=== PATIENT | female | born 1930 ===

== ENCOUNTER 2018-09-29 04:44 | Inpatient (IN) | payer OTHER ==
--- NOTE | ~2018-09-29 | PR ---
[place], [place] PROGRESS NOTE NAME: KAREN MEEK UNIT #: [id number] ROOM: 310 DOCTOR: CRISS BLANKENSHIP MD BIRTHDATE: [birth year] DOS: 10/01/2018 INTERVAL NOTE CHIEF COMPLAINT: "Oh thank you for helping me." SUMMARY OF THE VISIT: The patient was interviewed as she was sitting trying to open a milk carton. I did remove the milk carton from her hand, opened it for her and placed it back in her hand and she thanked me profusely. She was bright and pleasant with me; however, nurses report she continues to repeatedly exit seek. She is very intrusive and impulsive. She oftentimes attempts to help other patients out or will take other patients belongings. She has also had periods of yelling out and being very inappropriate. Outwardly, she is tolerating the current medication regimen well and I see no sedation, somnolence, extrapyramidal symptoms or tardive dyskinesia. MENTAL STATUS: She is alert and oriented to person, doubtful to place, certainly not time. Mood does still seem to be labile. Affect at times inappropriate. Her responses are short, simple, at times inappropriate to the questions that are being asked of her. She does process information slowly and short-term memory continues to be problematic. PLAN: I will go ahead and increase Namenda from 5 mg a day to 5 mg twice a day while simultaneously increasing Exelon patch from 4.6 to 9.5 mg daily. Given the fact that there is a great deal of delusions present, I will increase her Risperdal from 0.5 mg twice daily to 1 mg twice daily, we will simultaneously discontinuing the Vistaril as to lessen the potential for somnolence. We will ultimately want to switch her over to Risperdal Consta or Invega Sustenna. We will monitor and support, engage in individual and richardson milieu activity. CIRSS BLANKENSHIP MD CM:PNTRANS [id number] CRISS BLANKENSHIP MD 10/01/18 0853 interface
--- NOTE | ~2018-09-29 | PR ---
[place], [place] PROGRESS NOTE NAME: KAREN MEEK UNIT #: [id number] ROOM: 310 DOCTOR: CRISS BLANKENSHIP MD BIRTHDATE: [birth year] DOS: 10/04/2018 INTERVAL NOTE CHIEF COMPLAINT: "Good morning where do I go?" SUMMARY OF THE VISIT: The patient was interviewed as she was sitting in front of her breakfast. She had about half of it eaten. She engaged readily in conversation with me. It was short and simple responses often times inappropriate. At times, no response. She rambled at times. She continues to exit seek per nursing and is very confused and requires a great deal of support and redirection. MENTAL STATUS: She is alert and oriented to person, doubtful place, not to time. Mood does seem to be more euthymic, but it is very difficult to redirect her. There is no lori or hypomania. There is no gross psychosis. Short-term memory is very problematic. PLAN: I will maintain her current dose of Exelon patch at 13.3, increase now Namenda to its maximum dose of 10 b.i.d. Monitor and maintain, support and redirect. Engage in individual and richardson milieu activity, discharging her to the least restrictive environment when psychiatrically stable. CRISS BLANKENSHIP MD CM:PNTRANS [id number] CRISS BLANKENSHIP MD 10/04/18 0850 interface
--- NOTE | ~2018-09-29 | PR ---
[place], [place] PROGRESS NOTE NAME: KAREN MEEK UNIT #: [id number] ROOM: 310 DOCTOR: CRSIS BLANKENSHIP MD BIRTHDATE: [birth year] DOS: 10/06/2018 CHIEF COMPLAINT: "Oh, I don't know." SUMMARY OF THE VISIT: The patient was interviewed as she was going into the court hearing for further length of stay. The patient was rather disjointed and fragmented and very perplexed by the entire process. The court did rule that the patient did require further stay here. The patient outwardly is alert and oriented to self, unclear place and certainly not time. Mood does seem to be trending towards euthymia. There is much less exit seeking and much less impulsivity. There is no hypomania or lori. There are no gross psychotic symptoms. She does process conversation exceptionally poorly and her short term memory is very poor as well. PLAN: I will renew her Ativan p.r.n. should she require intervention. She has already received a loading dose of the Invega Sustenna and is scheduled to receive a secondary loading dose on 10/09/2018. At this time, I will discontinue her oral Risperdal as to lessen the risk of extrapyramidal symptoms and tardive dyskinesia. We will continue to engage her in individual and richardson milieu activity, returning to the least restrictive environment when psychiatrically stable. CRISS BLANKENSHIP MD CM:PNTRANS [id number] CRISS BLANKENSHIP MD 10/07/18 0308 interface
--- NOTE | ~2018-09-29 | PR ---
[place], [place] PROGRESS NOTE NAME: KAREN MEEK UNIT #: [id number] ROOM: 310 DOCTOR: CRISS BLANKENSHIP MD BIRTHDATE: [birth year] DOS: 10/05/2018 CHIEF COMPLAINT: "Oh, I lived in the [facility] by myself." SUMMARY OF THE VISIT: The patient was interviewed as she was finishing her breakfast. She smiled and engaged readily in conversation. Her conversation for the most part was nonsensical to the questions being asked of her, but she was pleasant and did attempt to engage. There was no agitation or aggression. Also, there was no somnolence, sedation, extrapyramidal symptoms or tardive dyskinesia. MENTAL STATUS: She remains alert and oriented to self only. It is unclear if she realizes she is in the hospital and she is certainly not oriented to time. Mood does still seem to be somewhat labile, but she is redirectable. She does require a lot of support and redirection. There is no lori or hypomania. There are no gross psychotic symptoms. She does process information slowly and short term memory continues to be very problematic. PLAN: I will renew her p.r.n. Ativan should she require intervention. The patient is to get her initial loading dose of Invega Sustenna 156 mg IM today. I will reload her with Invega Sustenna 156 mg IM on 10/09/2018 and at that time, give her that same dose every month to decrease her mood lability and impulsivity. We will monitor for risk, benefits. We will engage in individual and richardson milieu activity with the ultimate plan to return to the least restrictive environment when psychiatrically stable. CRISS BLANKENSHIP MD CM:PNTRANS [phone] CRISS BLANKENSHIP MD 10/06/18 0325 interface
--- NOTE | ~2018-09-29 | CON ---
[place], [place] REPORT OF CONSULTATION NAME: KAREN MEEK UNIT #: [id number] ROOM: 310 DOCTOR: PHD MAINOR PATEHERINE BIRTHDATE: [birth year] DOS: 09/30/2018 HISTORY OF PRESENT ILLNESS: The patient is an 87-year-old female referred by Dr. Martinez for a competency evaluation. At the present time, the patient is on the [facility] at [facility]. She is and has 3 children. 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 She lives alone, although her daughter is now planning on moving in with her. The patient does not drink alcohol, smoke cigarettes or use illegal drugs. PAST MEDICAL HISTORY: Intermittent explosive disorder, hypothyroidism, dementia. MEDICATIONS: Vitamin D, Vistaril, Synthroid, Risperdal, Namenda, Exelon, Geodon, Ativan. The patient was awake, alert and oriented to person only. 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 She talked about her mother as if she were still living. The patient was not able to be redirected in conversation and was hyperverbal. She would not sit in a quiet room for the evaluation and instead walked up and down the hallway. She does not have a healthcare power of banking attorney and her family is interested in pursuing guardianship. The patient is currently not competent to make informed health care decisions at this time. In my opinion, she would benefit from establishing guardianship due to her significant cognitive deficits. DIAGNOSIS: Unspecified neurocognitive disorder. In my opinion, the patient is not competent to make informed health care decisions. Thank you very much for this consult. Corazon Pate, PhD CM:CONSTR:REPORT OF CONSULTATION 1710 10/01/18 0513 interface
--- NOTE | ~2018-09-29 | WRIGHTHP ---
[place], [place] PATIENT HISTORY AND PHYSICAL EXAM NAME: KAREN MEEK UNIT #: [id number] ROOM: 310 DOCTOR: CRISS BLANKENSHIP MD BIRTHDATE: [birth year] DOS: 09/30/2018 INITIAL PSYCHIATRIC EVALUATION CHIEF COMPLAINT: "I am here because of the food you know." HISTORY OF PRESENT ILLNESS: This is an 87-year-old white female who was sent here on an involuntary basis from [facility]. The patient was brought to [place] by the police. The patient had accompanied her daughter earlier in the day to the bank to mayfield the check. After they mayfield the check, the patient became very irate, irritable and paranoid, accusing the daughter of stealing all of her money. Her behavior escalated to the point that she was putting her daughter at risk for harm. The daughter ultimately called the police and police did bring her to [place] to be evaluated. The patient apparently lives alone with family checking on her several times a week. The patient has not been eating or drinking well. She has not been sleeping well. She has not been attending to her ADLs. The patient is grossly confused and delusional and was admitted now to rule out any organic factors, to stabilize on medication and to determine the least restrictive environment to which she could return. PAST MEDICAL HISTORY: Remarkable for intermittent explosive disorder, hypothyroidism and dementia. The patient does not smoke cigarettes. She does not drink alcohol nor does she use illicit drugs. STRENGTHS: Ambulatory, good verbal skills. WEAKNESSES: Cognitive decline, poor coping skills. MENTAL STATUS: She is alert and oriented to person, possibly place, although it is unlikely certainly not time. Mood does seem to be somewhat labile and affect inappropriate. Her responses are short and simple, at times totally inappropriate to the question asked of her. She does process conversation slowly and responses tend to be slow and deliberate. Short-term memory continues to be problematic. DIAGNOSES: Brief psychotic disorder and Alzheimer's dementia. PLAN: I have already started her on Exelon patch 4.6 mg a day to impact positively on ADLs, behavior and cognition. I will augment with Namenda 5 mg a day. Given the fact that there is a significant level of paranoia, we will start Risperdal 0.5 mg twice a day. We will have social staff worker proceed with a passer and look to place at least in a 30-day rehab facility if not longer. We will engage in individual and richardson milieu activity, returning to the least restrictive environment when psychiatrically stable. [place], [place] PATIENT HISTORY AND PHYSICAL EXAM NAME: KAREN MEEK UNIT #: [id number] ROOM: 310 DOCTOR: CRISS BLANKENSHIP MD BIRTHDATE: [birth year] CRISS BLANKENSHIP MD CM:HISPHYS:PATIENT HISTORY AND PHYSICAL EXAMINATION 1 CRISS BLANKENSHIP MD 09/30/18 0843 interface
--- NOTE | ~2018-09-29 | PR ---
[place], [place] PROGRESS NOTE NAME: KAREN MEEK UNIT #: [id number] ROOM: 310 DOCTOR: CRISS BLANKENSHIP MD BIRTHDATE: [birth year] DOS: 10/07/2018 CHIEF COMPLAINT: "Oh, I am okay, thank you." SUMMARY OF THE VISIT: The patient was interviewed as she had finished her breakfast. She was sitting quietly in the dining area. She engaged readily in superficial conversation and voiced no complaint. She was bright and pleasant. Nurses note a substantial change in her behavior, and she has been much less exit seeking and much more redirectable. MENTAL STATUS: She is alert and oriented to self, unclear place, certainly not time. Mood does seem to be strongly trending towards euthymia. Affect is much more appropriate. There is no lori or hypomania. There is no gross psychosis. Short term memory remains problematic. PLAN: I will maintain her current psychotropic regimen, engage in individual and richardson milieu activity, returning to the least restrictive environment when psychiatrically stable. CRISS BLANKENSHIP MD CM:PNTRANS [phone] CRISS BLANKENSHIP MD 10/07/18 2159 interface
--- NOTE | ~2018-09-29 | DS ---
[place], [place] DISCHARGE SUMMARY NAME: KAREN MEEK UNIT #: [id number] ROOM: 310 DOCTOR: CRISS BLANKENSHIP MD BIRTHDATE: [birth year] DOS: 10/08/2018 CHIEF COMPLAINT: "I am here because of the food you know." HISTORY OF PRESENT ILLNESS: This is an 87-year-old white female who was sent here on an involuntary basis from [facility]. The patient was brought in there by the police. The patient had been accompanied by her daughter and had gone to the bank earlier in the day to mayfield the check. After they mayfield the check, the patient became very irate and irritable and was very paranoid, accusing the daughter of stealing all of her money. These behavior escalated to the point that she began putting her daughter at risk for harm. The daughter ultimately had to call the police and because she was verbally and physically aggressive towards them, they brought her to [facility] to be further evaluated. The patient apparently lives alone with the family checking on her several times a week. The patient has not been eating or drinking well. She has not been sleeping well. She has not been attending to her ADLs. She is grossly confused and is delusional and it was felt that an inpatient stabilization was warranted at this time. She was admitted then to the [facility] to rule out further organic factors to attempt to stabilize on medication, to engage in individual and richardson milieu activity, returning to the least restrictive environment when psychiatrically stable. SUMMARY OF THE HOSPITAL COURSE: The patient was started on Exelon patch 4.6 mg daily to impact positively on ADLs, behavior, and cognition. This was later augmented with Namenda 5 mg a day. There is a significant amount of paranoia and delusion. For these reasons, Risperdal 0.5 mg twice daily was utilized. Family did request if at all possible to utilize some type of long-acting decanoate prep because they were concerned that her compliance with medicines at home would be suspect. The patient tolerated these well and over time the Exelon patch was maximized out to its highest dose of 13.3 mg a day while the Namenda was brought up to 10 mg twice a day with no side effects and good benefits. The Risperdal dose was gradually increased to 1 mg twice a day again without EPS, tardive dyskinesia, sedation or somnolence. At this point, she was loaded with Invega Sustenna. Given her advanced age, however, rather than loading with 234 mg, she was loaded with 156 mg and then 4 days later reloaded with another 156 mg. This had a dramatic impact on her behavior. She became much more pleasant and cooperative. She engaged in group activities. She did not exit seek. She redirected well. She did not exhibit sedation, somnolence, extrapyramidal symptoms or tardive dyskinesia with this combination of medicine. Family did voice that they wanted to take her home and that they had already been in contact with the Alzheimer society to find out ways to dementia proof the home and were working on that during her entire stay. The patient had improved sufficiently by 10/08/2018 to return home. MENTAL STATUS AT DISCHARGE: She is alert and oriented to person, unclear place, certainly not time. Mood was euthymic. Affect appropriate. There was no lori, hypomania or psychosis. Short term memory continued to be problematic. FINAL DIAGNOSES: Brief psychotic disorder, intermittent explosive disorder, and [place], [place] DISCHARGE SUMMARY NAME: KAREN MEEK UNIT #: [id number] ROOM: 310 DOCTOR: CRISS BLANKENSHIP MD BIRTHDATE: [birth year] Alzheimer's dementia. DISPOSITION: The patient is returning home with her daughter. All of her prescriptions have been E-scribed to the [facility] in [place]. At the time of discharge, she was psychiatrically stable and there were no acute medical problems confronting her. CRISS BLANKENSHIP MD CM:DISCHARG [id number] CRISS BLANKENSHIP MD 10/08/18 1142 interface
[2018-09-29] MEDS ORDERED: LEVOTHYROXINE50 MCG PO (04:54)
[2018-09-29] MEDS ORDERED: KEFLEX500 M1 PO (05:02)
--- NOTE | 2018-09-29 10:40 | NUR ---
GAVIOTAKAREN a 87 year old F admitted via stretcher from the OTHER ([facility]) as a emergency 72 hr. hold admission. Arrived on unit at 1040. ALLERGIES: NKDA. Vital signs are: 98.5-78-18 123/63. PT UNABLE TO SIGN AND ADMISSION PAPERWORK OR PARICIPATE IN ADMISSION ASSESSMENTS DUE TO COGNITION. Admitted under the services of Dr. PATTIE PIRES,CRISS. A search was conducted and hazardous articles were removed. Client was oriented to the unit. MEKHI BAUER
[2018-09-29 11:26] VITALS: BP 123/63
--- NOTE | 2018-09-29 11:47 | NUR ---
AM GROUP THERAPY/SELF-CARE PT HAS JUST BEEN ADMITTED TO THE UNIT AND HAS YET TO BE ASSESSED OR ORIENTED TO THE FLOOR. WILL ATTEMPT ASSESSMENT AND GOAL SETTING THIS AFTERNOON.
--- NOTE | 2018-09-29 11:48 | NUR ---
P-PT UNABLE TO VERBALIZE BIRTHDAY. CONFUSED WITH SEVERE ST/LT MEMORY DEFICITS. ORIENTED TO NAME ONLY. VERBALIZING PARANOID IDEATIONS THAT PEOPLE ARE OUT TO GET HER AND HYPERSENSATIVE TO MALE STAFF OF THE UNIT. PT SEEN MALE MILIEU SPECIALIST AND STATES "YOU SEE HIM THERE, WHAT'S HE GONNA GO." PT DID THE SAME TO MALE ELECTRIC MOTOR WINDERS ASSEMBLER ON UNIT. SPEECH IS NONSENSICAL AND PT IS HYPERVERBAL. I-REORIENTED AND PRESENTED REALITY. R-INTERVENTIONS INEFFECTIVE. PT UNABLE TO RECALL ANY NEW INFORMATION DUE TO COGNITIVE STATUS. WANDERING ABOUT UNIT. WANDER PRECAUTIONS INITIATED. P-ENCOURAGE GROUPS, DIVERSIONAL ACTIVITIES FREQUENTLY T/O THE DAY AND NEEDED.
--- NOTE | 2018-09-29 12:00 | NUR ---
CALLED HOSPITALIST BAMBI DUBON AND SPOKE TO , MADE AWARE OF NEW CONSULT.
--- NOTE | 2018-09-29 12:09 | NUR ---
CACHORRO ABRAMS ON UNIT TO ASSESS PT. CACHORRO ABRAMS CALLED DTR AND SPOKE TO HER REGARDING HISTORY AND CURRENT INCIDENT THAT LED TO PTS ADMISSION.
--- NOTE | 2018-09-29 12:39 | NUR ---
OFFICE STAFF MADE AWARE OF NEW CONSULT FOR .
--- NOTE | 2018-09-29 12:45 | NUR ---
P-ALERT AND ORIENTED TO SELF ONLY, OTHERWISE CONFUSED. EXIT SEEKING BEHAVIORS NOTED. PARANOID DELUSIONS VOICED. I-REALITY PRESENTED, 1:1, REORIENTED. R-INTERVENTIONS INEFFECTIVE, PT UNABLE TO RECALL ANY NEW INFORMATION DUE TO COGNITIVE STATUS. P-ENCOURAGE GROUPS.
--- NOTE | 2018-09-29 15:40 | NUR ---
PM GROUP THERAPY/RELAXATION TECHNIQUES PT WAS IN AND OUT OF THE ACTIVITY ROOM. PT IS HIGHLY CONFUSED AND IS UNAWARE OF WHERE SHE IS OR WHY. PT COULD NOT BE ENCOURAGED TO PARTAKE IN ANY OF THE ACTIVITIES. PT WILL BE ENCOURAGED TO PARTICIPATE TOMORROW.
--- NOTE | 2018-09-29 16:38 | NUR ---
Met with pt who was confused majority of the time but was able to make some sensical statements especially related to her children and stated she wanted this contract technical writer to talk to her children and seemed to understand giving consent to talk to the them and signed the consent form. Began psychosocial assessment. This contract technical writer spoke briefly with her son Reynold and obtained collateral information and provided the ip technology transactions attorney information for Felice Reza in [facility] and discussed guardianship process as son indicated he wanted to file for guardianship. UPon The psychologist consult updates will be provided regarding competency. Later called son Reynold with the pt and left a VM.
--- NOTE | 2018-09-29 17:16 | NUR ---
PT HAS WENT TO THE DOOR MULTIPLE TIMES "LOOKING FOR THE STEPS." PT REDIRECTED EACH TIME. REDIRECTION IS MINIMALLY EFFECTIVE FOR LESS THAN 2 MINUTES AT A TIME. PT WANDERING ABOUT THE UNIT. SPEECH IS NONSENSICAL. ST MEMORY IS NOTED TO BE SEVERELY IMPAIRED.
[2018-09-29 20:00] VITALS: BP 127/71
--- NOTE | 2018-09-29 23:42 | NUR ---
24 HR chart check completed.
--- NOTE | 2018-09-30 01:17 | NUR ---
P: WANDERING IN/OUT OF OTHER PT ROOMS. I: PT WAS REDIRECTED MULTIPLE TIMES. ENCOURAGED TO GO TO THE DINNINGROOM TO INTERACT WITH PEERS. DIVERSION TECHNIQUES USED TO GET THE PT TO REST. R: ALL DIVERSION TECHNIQUES UNSUCCESSFUL. EASILY REDIRECTED OUT OF OTHERS ROOM. PT RESTLESS AND WANDERING THE HALLS. P: CONTINUE TO REDIRECT PT NEEDED. USE DIVERSION TECHNIQUES TO GET PT TO REST IN ONE SPOT FOR AT LEAST 5 MINUTES. ENCOURAGE PT TO INTERACT WITH OTHER PEERS AND KEEP APPROPRIATE DISTANCE FOR PERSONAL SPACE. Q15 MINUTE SAFETY CHECKS MAINTAINED.
[2018-09-30 05:59] LABS: BASO % 0.5 % (0.0-1.0); EOS # 0.1 10*3/uL (0.0-0.4); EOS % 1.5 % (1.0-4.0); HEMATOCRIT 40.8 % (37.0-47.0); HEMOGLOBIN 13.8 g/dl (12.0-16.0); LYMPH # 2.3 10*3/uL (1.3-4.4); LYMPH % 34.9 % (27.0-41.0); MEAN CELL VOLUME 93.6 fl (81.0-99.0); MEAN CORPUSCULAR HGB 31.7 pg (27.0-31.0); MEAN CORPUSCULAR HGB CONC 33.8 g/dl (33.0-37.0); MEAN PLATELET VOLUME 10.8 fl (9.6-12.3); MONO # 0.4 10*3/uL (0.1-1.0); MONO % 6.5 % (3.0-9.0); NEUT # 3.8 10*3/uL (2.3-7.9); NEUT % 56.4 % (47.0-73.0); PLATELET COUNT AUTOMATED 159 10*3/uL (130-400); RED BLOOD COUNT 4.36 10*6/uL (4.10-5.10); RED CELL DISTRI WIDTH 13.2 % (0-14.5); WHITE BLOOD COUNT 6.7 10*3/uL (4.8-10.8)
[2018-09-30 06:13] LABS: ALBUMIN 3.4 gm/dl (3.1-4.5); ALKALINE PHOSPHATASE 89 U/L (45-117); BUN 25 mg/dl (7-24); CHLORIDE 107 mmol/L (98-107); CHOLESTEROL 204 mg/dL (<200); HDL CHOLESTEROL 46 mg/dl (40-60); LDL CHOLESTEROL 144 mg/dL (9-159); POTASSIUM 4.2 mmol/L (3.5-5.1); SGOT/AST 24 IU/L (3-35); SGPT/ALT 21 U/L (12-78); SODIUM 141 mmol/L (136-145); TOTAL PROTEIN 6.8 gm/dL (6.4-8.2); TRIGLYCERIDES 71 mg/dl (<150); VLDL CHOLESTEROL 14 mg/dL (6-40)
--- NOTE | 2018-09-30 06:46 | NUR ---
PT DID NOT SLEEP THIS SHIFT. Q15 MINUTE SAFETY CHECKS MAINTAINED.
[2018-09-30 07:58] VITALS: BP 137/50
--- NOTE | 2018-09-30 08:15 | NUR ---
Treatment Plan meeting with Dr. Martinez, RN, AT, [facility] and [facility]. Plan for discharge next week. Bushel Worker to work with family to discuss placement. Will require PASRR.
[2018-09-30 09:06] LABS: VITAMIN D, 25-HYDROXY 25.6 ng/mL (30-100)
--- NOTE | 2018-09-30 09:36 | NUR ---
P-INAPPROPRIATE JOKING WITH STAFF, ORIENTED TO SELF ONLY-OTHERWISE CONFUSED WITH ST/LT MEMORY DEFICITS I-REDIRECT, DIVERSIONAL ACTIVITIES, OFFER PO FLUIDS AND NUTRITION R-MINIMALLY EFFECTIVE FOR SHORT PERIODS OF TIME. OTHER TIMES, PT BECOME AGITATED WITH REORIENTATION AND REDIRECTION. P-ENCOURAGE GROUPS, QUIET TIME TO CALM
--- NOTE | 2018-09-30 09:40 | NUR ---
Completed psychosocial assessment with collateral information from Shanel-daughter today who indicated she is in the process of moving in with the patient as the family does not want a fpc. Provided PCP information. Provided update that competency evaluation will be conducted today. Collaborated with liaison planner and provided family updates. Collaobrated with regarding family request to have medication via shot rather than pill due to medication compliance concerns in past. Called sonKarena and left requesting return call.
--- NOTE | 2018-09-30 09:43 | NUR ---
P-RESTLESS, INTRUSIVE, ORIENTED TO NAME ONLY, UNABLE TO FOLLOW SIMPLE COMMANDS I-REDIRECT AND REORIENT FREQUENTLY AND NEEDED, DIVERSIONAL ACTIVITIES NECESSARY R-ALL INTERVENTIONS EXHAUSTED HAVE BEEN EFFECTIVE FOR LESS THAN 1 MINUTE THUS FAR THIS SHIFT. PT REMAINS SEVERELY CONFUSED WITH ST/LT MEMORY GAPS. UNABLE TO RECALL ANY NEW INFORMATION FOR ANY LENGTH OF TIME. P-ENCOURAGE GROUP, UPDATED ON PT STATUS
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
--- NOTE | 2018-09-30 12:04 | NUR ---
PERSONAL DAILY GOAL PRESENT PT WITH REALITY ORIENTATION AND MEMORY BRIDGEING BETWEEN PAST AND PRESENT
--- NOTE | 2018-09-30 12:41 | NUR ---
AND ON UNIT TO SEE PT AT THIS TIME. MADE AWARE OF ELEVATED TSH AT 9.030 AND PT HAS BEEN NONCOMPLIANT WITH HOME MEDICATION SYNTHROID, SYNTHROID HAS NOT YET BEEN REORDERED FOR INPATIENT STATUS. ALSO MADE AWARE KEFLEX ORDERED AT [facility] HAS NOT YET BEEN REORDERED FOR +UTI.
--- NOTE | 2018-09-30 14:25 | NUR ---
CLINICALS FAXED TO DOREEN HAHN AT [phone].
--- NOTE | 2018-09-30 14:45 | NUR ---
Called [facility] regarding request for civil committment and faxed the packet with affidavit and mental health case history and they will transfer jurisdiction to [facility] Probate.
--- NOTE | 2018-09-30 15:44 | NUR ---
PM GROUP/CREATIVE OUTLETS PT WAS PRESENT FOR GROUP AND HAD MUCH DIFFICULY SITTING STILL FOR MORE THAN A MINUTE. PT WAS PREOCCUPIED WITH FINDING "SOMETHING" AND COULD NOT BE REDIRECTED. PT WAS FINALLY ABLE TO SIT AND PAINT AND LISTEN TO MUSIC FOR ABOUT 20 MINUTES BUT BEGAN WANDERING AND EXIT SEEKING. PT IS VERY CONFUSED AND SPEAKS OUT OF CONTEXT. PT HAS NO IDEA WHERE SHE IS OR WHY. PT IS NOT AWARE OF THE PERSONAL SPACE OF OTHERS AND NEEDS TO BE REMINDED. PT WILL CONTINUE TO ATTEND AND PARTICIPATE IN GROUP.
--- NOTE | 2018-09-30 16:32 | NUR ---
PT CONTINUES WANDERING ABOUT THE UNIT WITH EXIT SEEKING BEHAVIORS. WANDER/ELOPEMENT PRECAUTIONS MAINTAINED.
[2018-09-30 18:49] LABS: BILIRUBIN NEGATIVE (NEGATIVE); BLOOD 2+ (NEGATIVE); CLARITY CLEAR (CLEAR); COLOR YELLOW (YELLOW); GLUCOSE NEGATIVE (NEGATIVE); KETONE NEGATIVE (NEGATIVE); LEUKO ESTERASE 1+ (NEGATIVE); NITRITE NEGATIVE (NEGATIVE); PH 5.5 (5.0-9.0); UROBILINOGEN 0.2 E.U./dl (0.2-1.0)
[2018-09-30 19:35] LABS: BACTERIA 1+; WBC 16-20 wbc/hpf (0-5)
[2018-09-30 20:18] VITALS: BP 135/50
--- NOTE | 2018-10-01 02:26 | NUR ---
24 HR chart check completed.
--- NOTE | 2018-10-01 05:57 | NUR ---
ALERT TO PERSON OTHERWISE CONFUSED. MEMORY DEFICITS NOTED. NO HALLUCINATIONS OR DELUSIONS NOTED. PACING AND RESTLESS. PT CONTINUES TO BE INTRUSIVE WITH MAXIMUM REDIRECTION NEEDED. PT DID SLEEP IN BED THIS HS. MEDICATION COMPLIANT WITH MUCH ENCOURAGEMENT. PT REDIRECTED OUT OF OTHERS ROOMS MULITPLE TIMES. CONTINUE TO MONITOR PT BEHAVIORS WITH Q15 MINUTE SAFETY CHECKS.
--- NOTE | 2018-10-01 06:44 | NUR ---
PATIENT SLEP APPROXIMATELY 6 HOURS OF SLEEP UNINTERRUPTED.
[2018-10-01 08:09] VITALS: BP 139/52
--- NOTE | 2018-10-01 08:15 | NUR ---
Treatment Plan meeting with Dr. Martinez, RN, AT, SW and [employer]. Plan for discharge next week. Pt. to return home to live with her daughter.
--- NOTE | 2018-10-01 10:15 | NUR ---
SAIMA DAVIES ON UNIT TO ASSESS PT, UPDATE PROVIDED.
--- NOTE | 2018-10-01 11:35 | NUR ---
AM GROUP THERAPY NO AM GROUP DUE TO NEW PT ASSESSMENT AND 1:1.
--- NOTE | 2018-10-01 11:35 | NUR ---
Received fax of copy of order of long term from [facility] and it was placed on the chart and tx team notified. [facility] Probate had the case from [facility] who transferred jursidiction. Picked up paperwork from court to serve patient with order of long term and rights related to upcoming hearing. Left VM for son-Reynold indicating the updates regarding order of long term and plan for hearing as well as request for when son would be visiting to hand picker original expert evaluation as he is filing for guardianship or where he wanted this promotion writer to send that paperwork. Will await response. notified of date and time of hearing via phone. Lulú was served her notice of hearing on affidavit and the rights of an involuntarily detained person and returns completed. Yoel [facility] Book Coverer and Dr. Martinez were provided their copy of the hearing paperwork as well.
--- NOTE | 2018-10-01 15:20 | NUR ---
PERSONAL DAILY GOAL REALITY ORIENTATION AND MEMORY BRIDGE. PT IS HIGHLY CONFUSED AND RESPONDS WELL TO REMINISCING.
--- NOTE | 2018-10-01 15:21 | NUR ---
PM GROUP/SOCIALIZATION AND GAMES PT WAS PRESENT FOR AFTERNOON GROUP BUT IS UNABLE AT THIS TIME TO PARTICIPATE DUE TO HIGH LEVEL OF CONFUSION. PT DOES NOT KNOW WHERE SHE IS AND WHY. PT NEEDS TO KEEP MOVING AND "DOING".
--- NOTE | 2018-10-01 16:50 | NUR ---
P: CONFUSION, EXIT SEEKING, PACING/RESTLESS I: RE-ORIENT PT TO REALITY AND REDIRECT NEEDED, OFFER DIVERSIONS ACTIVITIES R: PT CONTINUES TO EXIT SEEK, STATES "I NEED TO GO WHICH DOOR LETS ME OUT" P: CONTINUE TO RE-ORIENT AND REDIRECT NEEDED, OFFER DIVERSION ACTIVITIES PT ALERT TO PERSON ONLY, SHORT TERM/CORRECTION MEMORY DEFICITS NOTED. PT MED COMPLAINT WITHOUT DIFFICULTY, UNABLE TO PROVIDE MED EDUCATION D/T CONFUSION. PT OBSERVED TO BE RESPONDING TO AUDITORY/VISUAL HALLUCINATIONS, STATED TO STAFF "THOSE PEOPLE OVER THERE AREN'T BOTHERING ME TODAY, THEY HAVEN'T COME TO GET THEIR TICKETS" PT AMBUALTORY THROUGHOUT UNIT, GAIT STEADY. PT CONTINENT OF BOWEL AND BLADDER, EPISODES OF INCONTINENCE NOTED, CARE PROVIDED.
[2018-10-01 19:11] VITALS: BP 139/50
--- NOTE | 2018-10-01 21:00 | NUR ---
P--CONFUSION/INTRUSIVNESS I--REORIENTED TO PLACE AND TIME. REDIRECTION TO LEAVE OTHER CLIENTS ALONE (NOT TOUCHING THEM) . ENCOURAGED HER TO COLOR, READ A MAGAZINE OR WATCH TV. REVIEWED COPING SKILLS R--OH I AM NOT A PATIENT. I AM HERE TO HELP YOU. P--CONTINUE EMOTIONAL SUPPORT, ORIENTATION, REDIRECTION Q15 MIN SAFETY CHECKS. INTRUSIVE WITH PEERS, MEDICATION COMPLIANT. DIFFICULT TO REDIRECT. ORIENTED TO SELF ONLY.
--- NOTE | 2018-10-02 07:03 | NUR ---
24 HR chart check completed.
[2018-10-02 08:07] VITALS: BP 137/58
--- NOTE | 2018-10-02 12:01 | NUR ---
AM GROUP/EXERCISES/FOCUS PT ATTENDED AND PARTICIPATED IN GROUP TO BEST OF ABILITY. PT QUIET, BUT LISTENING TO GROUP. WHEN PT DID TALK IT WAS HARD TO UNDERSTAND DUE TO PT CONFUSION. TOWARDS END OF GROUP PT ATTEMPTING TO CLEAN UP BUT BECAME CONFUSED AND TRIED TO DIG THROUGH GARBAGE CAN. PT REDIRECTED AT THIS TIME. PT WILL CONTTINUE TO ATTEND AND PARTICIPATE TO BEST OF ABILITY IN FUTURE GROUP SESSIONS.
--- NOTE | 2018-10-02 12:04 | NUR ---
PERSONAL DAILY GOAL PT WILL PRACTICE RELAXTION TECHNIQUES DUE TO EXIT-SEEKING. PT PRACTICED DEEP BREATHING IN GROUP TODAY.
[2018-10-02 19:48] VITALS: BP 112/62
--- NOTE | 2018-10-02 20:29 | NUR ---
WANDERING HALLS AND BEING INTRUSIVE/DISRUPTIVE WITH OTHER CLIENTS. UNABLE TO REDIRECT THAT SHE IS A PATIENT AND NOT STAFF. EMOTIONAL SUPORT PROVIDED
--- NOTE | 2018-10-02 21:48 | NUR ---
P--INTRUSIVE/DISRUPTIVE WITH CONFUSION I- REORIENT TO TIME AND PLACE. REDIRECT THAT SHE IS A PATIENT AND NOT STAFF, MONITOR FOR HER INTERACTIONS WITH PEERS. MEDICATE PER ORDERS R--NO I AM HERE TO WORK I AM NOT A PATIENT P- CONTINUE OFFERING EMOTIONAL SUPPORT WITH REDIRECTION. MONITOR FOR CHANGES IN MOOD
--- NOTE | 2018-10-03 01:05 | NUR ---
24 HR chart check completed.
--- NOTE | 2018-10-03 04:51 | NUR ---
HAS SLEPT WELL PAST 2200PM. MOVES SELF IN BED. NO PROBLEMS NOTED
[2018-10-03 08:11] VITALS: BP 140/68
--- NOTE | 2018-10-03 09:50 | NUR ---
PATIENT IS ALERT TO SELF WITH CONFUSION; LONG/SHORT TERM MEMORY DEFICITS. MOOD IS STABLE. NO RESPONSE TO INTERNAL STIMULI OBSERVED, NO VOICED COMMENTS OF HI/SI OR PAIN. 1 PERSON ASSIST WITH ACTIVITIES OF DAILY LIVING, CONTINENT OF BOWEL AND BLADDER. SET UP FOR MEALS, INTAKE ARE GOOD WITH ADEQUATE FLUIDS. AMBULATORY WITH STEADY GAIT. PATIENT REQUIRES VERBAL CUEING WITH ACTIVITIES OF DAILY LIVING. PATIENT HAS BEEN CALM AND INTERACTIVE WITH STAFF. SO FAR NOT INTRUSIVE IN OTHERS SPACE. Q 15 MINUTE SAFETY CHECKS MAINTAINED. MEDICATION COMPLAINT. CONTINUE TO MONITOR FOR INCREASED CONFUSION/AGITATION AND PARANOID THOUGHTS; PROVIDE ONE ON ONE AND REDIRECTION NEEDED.
--- NOTE | 2018-10-03 09:50 | NUR ---
DR. BOLES ON UNIT TO ASSESS PATIENT.
--- NOTE | 2018-10-03 16:23 | NUR ---
PM GROUP/EXERCISE/BINGO/ART PT ATTENDED AND PARTICIPATED IN GROUP. PT PLEASANT AND ON TASK ALTHOUGH AT TIMES WOULD GET CONFUSED STATING "I HAVE SO MUCH TO DO I NEED TO FIGURE OUT HOW TO GET OUT OF HERE TO LIGHTEN MY LOAD" THIS STAFF REDIRECTED PT TO CURRENT TASK. PT ON TASK WITH BINGO BUT WHEN DOING ART PT BECAME FIXATED ON LEAVING THE UNIT. PT PACED HALLS AND WOULD RETURN TO ACTIVITIES THIS STAFF FINALLY GOT PT TO SIT DOWN ANDF COMPLETE ART PROJECT. PT WILL CONTINUE TO ATTEND AND PARTICIPATE IN FUTURE GROUP SESSIONS.
--- NOTE | 2018-10-03 16:26 | NUR ---
PERSONAL DAILY GOAL PT STATES "I JUST NEED TO LIGHTEN MY LOAD I HAVE SO MUCH TO DO" THIS STAFF SUGGESTS RELAXTION TECHNIQUES FOR PT TO USE WHEN FEELING OVERWHELEMED. PT STATES "YES I HAVE USED DEEP BREATHING BEFORE". PT DAILY GOAL IS TO UTILIZE RELAXTION TECHNIQUES.
[2018-10-03 19:50] VITALS: BP 130/72
--- NOTE | 2018-10-03 20:33 | NUR ---
P--CONFUSION I--REORIENTED TO PLACE AND TIME AND THAT SHE IS A PATIENT NOT A WORKER. ALLOWED CLIENT TO VENT FEELINGS, FEARS AND NEEDS. WILL MEDICATE PER ORDERS. R- OH NO I WORK HERE, I CALLED THEM AND SHE SAID WELL I DON'T KNOW. P--CONTINUE REORIENTING AND PROVIDING EMOTIONAL SUPPORT. MEDICATE PER ORDERS MONITOR FOR SAFETY AND CHANGES IN MOOD. NO OUTBURSTS NOTED
--- NOTE | 2018-10-04 02:54 | NUR ---
UP ONE TIME CONFUSED AND DISORIENTED. REORIENTATION UNSUCCESSFUL BUT ABLE TO COAX HER BACK TO BED. 24 HR chart check completed.
[2018-10-04 08:02] VITALS: BP 121/62
--- NOTE | 2018-10-04 08:15 | NUR ---
Treatment Plan meeting with Dr. Martinez, RN, AT, SW and [facility]. Plan for discharge At the end of the week. Pt. to return home to live with her daughter.
--- NOTE | 2018-10-04 10:51 | NUR ---
PERSONAL DAILY GOAL SELF AND ENVIRONMENTAL AWARENESS PT STATES, "I JUST WANT TO UNDERSTAND WHAT I'M DOING"
--- NOTE | 2018-10-04 12:00 | NUR ---
AM GROUP/EXERCISES/GAMES PT ATTENDED AND PARTICIPATED IN GROUP. PT DID NOT TALK MUCH BUT REMAINED ON TASK. PT DID NOT EXIT SEEK DURING THIS GROUP. PT WILL CONTINUE TO ATTEND AND PARTICIPATE IN GROUP SESSIONS.
--- NOTE | 2018-10-04 12:57 | NUR ---
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 PT CONTINENT OF BOWEL AND BLADDER.
--- NOTE | 2018-10-04 13:12 | NUR ---
PT APPROVED 09/29-10/01 UPDATED CLINICALS SENT TO [facility] [phone] FOR REVIEW.
--- NOTE | 2018-10-04 15:31 | NUR ---
PM GROUP, ART, MUSIC PT ATTENDED AND PARTICIPATED DURING GROUP BUT CONFUSED AT TIMES. PT ON TASK AT FIRST BUT THEN WATCHED OTHER PT'S WORK. PT PLEASANTLY CONFUSED.PT DID NOT EXIT SEEK AT THIS TIME. PT WILL CONTINUE TO ATTEND AND PARTICIPATE TO BEST OF ABILITY.
--- NOTE | 2018-10-04 15:50 | NUR ---
PATIENT INCONTINENT OF BM. WHEN THIS NURSE TOOK HER TO THE RESTROOM TO GET CLEANED UP, SHE ASKED WHY WE WERE GOING TO THE RESTROOM. THIS NURSE EXPLAINED TO PATIENT THAT SHE HAD AN ACCIDENT AND WE WERE GOING TO GET CLEANED UP. WHEN SHE SAT ON THE TOILET SHE STATES "OH MY. I DID NOT KNOW I EVEN DID THAT. I HAVE BEEN SO BUSY HERE AT WORK, I MUST NOT HAVE HAD TIME TO USE THE RESTROOM". ASSISTED PATIENT IN CARE AND PROPER HYGIENE; EMOTIONAL SUPPORT PROVIDED. CURRENTLY WATCHING TV WITH PEERS IN DINING ROOM.
--- NOTE | 2018-10-04 16:25 | NUR ---
Shift chart check completed.
[2018-10-04 20:00] VITALS: BP 102/88
--- NOTE | 2018-10-05 02:32 | NUR ---
PT IS CONFUSED. ATTEMPTED TO REORIENT PT WAS INEFFECTIVE. PROVIDED 1:1 FOR EMOTIONAL SUPPORT. MONITORED BEHAVIORS ON Q15 MINUTE SAFETY CHECKS. REDIRECTED PT AWAY FROM DOORS. PT UNABLE TO BE REDIRECTED. PLAN IS TO CONTINUE TO ENCOURAGE MEDICATION COMPLIANCE, PROVIDE 1:1 FOR EMOTIONAL SUPPORT, CONTINUE TO MONITOR BEHAVIORS WITH Q15 MINUTE SAFETY CHECKS, AND REORIENT PT NEEDED.
--- NOTE | 2018-10-05 05:58 | NUR ---
24 HR chart check completed.
--- NOTE | 2018-10-05 06:10 | NUR ---
PT SLEPT APPROXIMATELY 6 HOURS THIS SHIFT. Q15 MIUTE SAFETY CHECKS MAINTAINED.
--- NOTE | 2018-10-05 07:50 | NUR ---
PHYSICAL THERAPY PAtient evaluated on three this date, full evaluation to follow. Continue with PT as per plan of care with fall, unit three and alarms prn percautions. Patient is moderate complexity via chart review, tests and evaluation: [id number]. Thank you for this referral. Mora Lazo,PT
[2018-10-05 07:53] VITALS: BP 119/62
--- NOTE | 2018-10-05 08:15 | NUR ---
Treatment Plan meeting with Dr. Martinez RN, AT, SW and [employer]. Plan for discharge at the end of the week or beginning of next week. Pt. to return home with daughter.
--- NOTE | 2018-10-05 09:00 | NUR ---
Occupational Therapy evaluation completed on 3 with full eval to follow. Precautions include fall risk, 3N unit precautions, impaired cognition, memory and judgement. Patient is moderate complexity level [id number] via chart review, testing and evaluation. Recommend OT per pOC and 24 hr supervision and assist upon d/c. Thank you for this referral. Hallie Ruiz OTR/l
--- NOTE | 2018-10-05 11:40 | NUR ---
PERSONAL DAILY GOAL MEMORY BRIDGE PT HIGH LEVEL OF CONFUSION IS LESSENED WHEN REMINISCING AND PRESENTING PRESENT REALITY.
--- NOTE | 2018-10-05 11:41 | NUR ---
AM GROUP/EXERCISE/SELF-WORTH PT ATTENDED AND PARTICIPATED IN ALL GROUP ACTIVITIES TO THE BEST OF HER ABILITY. PT HAS HIGH LEVEL OF CONFUSION. PT EXHIBITED NO AGGRESSIVE BEHAVIORS DURING GROUP AND WAS EASILY REDIRECTED.
--- NOTE | 2018-10-05 12:59 | NUR ---
SPOKE WITH PHARMACY RE:PT DAVE SALAS, PER PHARMACY IT IS CURRENTLY OUT OF STOCK, IT MAY BE IN LATER TODAY OR TOMORROW. UPDATED
--- NOTE | 2018-10-05 15:03 | NUR ---
SPOKE WITH RE: PT INVEGA SUSTENNA ORDER, PER DR. BLANKENSHIP HE WANTS 156MG GIVEN TODAY AND ANOTHER 156 DUE ON 10/09/18. UPDATED MARGOT IN PHARMACY
--- NOTE | 2018-10-05 15:27 | NUR ---
PM GROUP/LEISURE INTERESTS PT WAS PRESENT AT THE BEGINNING OF AFTERNOON GROUP BUT GOT UP IMMEDIATELY TO LEAVE STATING, "I HAVE TO GO AND GET MY WORK DONE." PT COULD NOT BE ENCOURAGED TO STAY AND PACED THE HALLWAY.
--- NOTE | 2018-10-05 15:46 | NUR ---
PT APPROVED 10/01-10/05 WITH NEXT REVIEW DATE 10/06 PER PHONE CALL
--- NOTE | 2018-10-05 15:56 | NUR ---
INVEGA SUSTENNA GIVEN TO RIGHT DELTOID. PT TOLERATED WITHOUT ISSUE.
--- NOTE | 2018-10-05 16:03 | NUR ---
SAIMA RANGELNP ON UNIT TO ASSESS PT.
[2018-10-05 20:27] VITALS: BP 107/65
--- NOTE | 2018-10-05 23:10 | NUR ---
PATIENT ALERT WITH CONFUSION. 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 PATIENT ABLE TO REDIRECTED WITH 1:1 INTERACTION AND PRESENTING REALTIY. REDIRECTION AND REALITY PRESENTATION EFFECTIVE FOR SHORT PERIODS OF TIME DUE TO PATIENT'S COGNITION. PATIENT MEDICATION COMPLIANT. PATIENT WITH NO RESPIRATORY DISTRESS. PATIENT AMBULATORY ON THE UNIT WITH STEADY GAIT. PATIENT WITH NO HALLUCINATIONS OR DELUSIONS. PATIENT WITH NO SUICIDAL OR HOMICIDAL IDEATIONS. SEE [facility] FOR SPECIFIC MONITORING
--- NOTE | 2018-10-06 02:59 | NUR ---
24 HR chart check completed.
--- NOTE | 2018-10-06 06:12 | NUR ---
PATIENT SLEPT 6-7 HOURS OF UNINTERRUPTED SLEEP THROUGHOUT SHIFT. Q 15 MINUTE CHECKS MAINTAINED
[2018-10-06 07:43] VITALS: BP 123/60
--- NOTE | 2018-10-06 08:00 | NUR ---
ON UNIT TO SEE PT AT THIS TIME, UPDATE GIVEN.
--- NOTE | 2018-10-06 08:05 | NUR ---
PHYSICAL THERAPY PT SUPINE IN BED WITH SLEEPYING UPON ARRIVAL. PT UNABLE TO AROUSED TO TAKE PART IN PT TREATMENT THIS Radhames HANCOCK PTA
--- NOTE | 2018-10-06 08:15 | NUR ---
Treatment Plan meeting with Dr. Martinez, RN, SW and Color Receiver. Plan for discharge Thursday. Pt. is to return home and live with her daughter who will provide 24 hour care.
--- NOTE | 2018-10-06 08:22 | NUR ---
PT AWAKE, ALERT, EATING BREAKFAST IN DINING ROOM WITH PEERS.
--- NOTE | 2018-10-06 08:45 | NUR ---
OT NOTE Pt was seen this A.M. 1:1 for 15 minute OT session. Upon arrival pt was sitting upright in chair in dining room, pt identified by name and and had no complaints at this time. Pt completed functional mobility around the dining room and into the hallway with CGA for safety and use of hand rail for UE support. challenged pt's static standing tolerance needed for increased I in self care tasks and functinal transfers and pt was able to tolerate aprox 3 minutes at a time before sitting due to fatigue. Pt was left sitting upright in dining room under [facility] staff supervision. Continue with rec D/C plan to home with 24 hour supervision and assist. JUNE Meyers/Helder
--- NOTE | 2018-10-06 09:25 | NUR ---
PERSONAL DAILY GOAL STRESS REDUCTION PT EXHIBITS "SUNDOWNING" BEHAVIORS BELIEVING SHE HAS "WORK TO DO" PT WOULD BENEFIT IN STRESS REDUCTION STRATEGIES.
--- NOTE | 2018-10-06 11:12 | NUR ---
AND ON UNIT TO SEE PT AT THIS TIME.
--- NOTE | 2018-10-06 11:39 | NUR ---
AM GROUP/EXERCISE/BRAIN GAMES PT ATTENDED AND PARTICIPATED IN MOST GROUP ACTIVITIES TO THE BEST OF HER ABILITY. PT WAS FALLING ASLEEP IN HER CHAIR BUT WAS AWAKENED EASILY. PT EXHIBITED NO EXIT SEEKING BUT WAS CONFUSED AND COULD NOT NAME A LETTER OF THE ALPHABET.
--- NOTE | 2018-10-06 12:18 | NUR ---
P- CONFUSION. POOR ST/LT MEMORY. I- ORIENTATION, MOOD AND BEHAVIOR ASSESSED. ASSESSED PT FOR SI/HI, INTENT OR PLAN. ASSESSED PT FOR S/S INTERNAL STIMULI, PARANOIA/DELUSIONAL THOUGHTS. MEDICATIONS ADMINISTERED PER PHYSICIAN'S ORDERS. ADL CARE COMPLETED WITH STAFF ASSIST X1 D/T COGNITIVE DECLINE. ENCOURAGED PT TO ATTEND AND PARTICIPATE IN ROBLES MILIEU GROUPS AND ACTIVITIES. R- PT IS ALERT AND ORIENTED TO SELF ONLY, CONFUSED IN ALL OTHER AREAS. PT IS UNABLE TO STATE WHERE SHE IS, THE TIME OR SITUATION. ST/LT MEMORY DEFICITS NOTED. RESPS EASY AND EVEN ON ROOM AIR. MOOD IS STABLE, AFFECT IS APPROPRIATE. SPEECH IS SOFT, COHERENT. IRRELEVANT AT TIMES. PT DENIES SI/HI, INTENT OR PLAN. PT DENIES HALLUCINATIONS, NO RESPONSE TO INTERNAL STIMULI NOTED. PT IS MEDICATION COMPLIANT WITHOUT DIFFICULTY. PT ATTENDED MORNING GROUP, HOWEVER, PARTICIPATION IS LIMITED D/T COGNITION. P- PLAN TO CONTINUE CURRENT TREATMENT, MONITOR MOOD AND BEHAVIOR, PROVIDE REDIRECTION, REORIENTATION AND 1:1 NEEDED. CONTINUE TO ENCOURAGE MEDICATION COMPLIANCE WELL GROUP ATTENDANCE AND PARTICIPATION.
--- NOTE | 2018-10-06 15:34 | NUR ---
PM GROUP/AROMATHERAPY/GUIDED MEDITATION PT ATTENDED AND PARTICIPATED IN ALL GROUP ACTIVITIES. PT WAS ABLE TO RELAX AND ONLY GOT UP ONE TIME. PT WILL CONTINUE TO ATTEND AND PARTICIPATE IN GROUP.
--- NOTE | 2018-10-06 15:41 | NUR ---
OCCUPATIONAL THERAPY CO-SIGN I approve of the Occupational Therapy notes written above. RAFA PEREZ OTR/Helder
--- NOTE | 2018-10-06 15:58 | NUR ---
REVIEW FAXED TO [phone].
[2018-10-06 19:55] VITALS: BP 120/65
--- NOTE | 2018-10-06 22:08 | NUR ---
P--CONFUSION I--REORIENTED TO PLACE AND TIME. TRIED TO GET CLIENT TO VERBALIZE FEARS AND CONCERNS. EMOTIONAL SUPPORT PROVIDED R-- CLIENT HAS WORD SALAD WITH FLIGHT OF IDEAS. P--CONTINUE TO REORIENT TO PLACE AND TIME. MONITOR FOR CHANGES IN BEHAVIORS. CONTINUE Q15 MIN SAFETY CHECKS
--- NOTE | 2018-10-07 04:01 | NUR ---
24 HR chart check completed.
--- NOTE | 2018-10-07 06:03 | NUR ---
SLEPT WELL PAST 2200PM. UP ONCE FOR INCONTINENCE AND TO FINISH VOIDING ON TOILET. SHOWERED AND AM CARE COMPLETED. PLEASENT AND INTERACTIVE WITH STAFF. NO OUT BURST THIS SHIFT.
--- NOTE | 2018-10-07 07:05 | NUR ---
PHYSICAL THERAPY Patient seen this am for therapy visit and was sittin in activity room chair at table upon therapist arrival. OT orthodontic assistant was present this morning for obsersation only as patient transfers sit to stand CGA x 1. Patient ambulates ad lupe in hallway without AD, Supervision, 150'x 1, followed by several standing balance activities including: eyes open / closed, side step @ rail, backward walk and single leg stance tolerating L side 2 seconds static stand and R side unable to complete due to immediate LOB. Overall patient's balance is Fair+ and would benefit from continued therapy to improve standing safety awareness, especially during 180 turns. Patient returned to activity room chair at [facility] and remained under [facility] staff Supervision. Will continue per POC as tolerated, total treatment time 15 minutes. Vinnie Omer, PATTERNMAKER BENCH
--- NOTE | 2018-10-07 07:12 | NUR ---
OT NOTE Pt was seen this A.m. 1:1 for 15 minute OT session. Upon arrival pt was sitting upright in chair in dining room. Pt identified by name and and had no complaints at this time. Pt completed functional mobility into the hallway towards her bedroom with CGA and use of hand rail due to presenting with a "swaying" motion increasing risk of falls. Pt was able to tolerate aprox 5 minutes at a time before requiring a seated rest break due to fatigue. Pt was left sitting upright in chair in dining room under [facility] staff supervision. Continue with rec D/C plan to home with 24 hour supervision and assist. JUNE Meyers/Helder
[2018-10-07 08:05] VITALS: BP 109/69
--- NOTE | 2018-10-07 08:20 | NUR ---
PT APPROVED AN ADDITIONAL 3 DAYS. LAST COVERED DATE 10/08.
--- NOTE | 2018-10-07 08:30 | NUR ---
Treatment Plan meeting with Dr. Martinez, RN, AT, SW and Assistant Paralegal. Plan for discharge Thursday. Pt. to return home with her daughter providing 24 hour care.
--- NOTE | 2018-10-07 11:39 | NUR ---
AM GROUP/EXERCISE/CURRENT EVENTS PT ATTENDED AND PARTICIPATED IN GROUP TO THE BEST OF HER ABILITIES. PT WAS ASKED HOW SHE FELT AND STATED,"VERY SLEEPY" PT STRUGGLED TO STAY AWAKE THROUGHOUT GROUP. PT EXHIBITED NO EXIT SEEKING BEHAVIORS DURING GROUP.
--- NOTE | 2018-10-07 11:56 | NUR ---
, AND ON UNIT TO SEE PT AT THIS TIME.
--- NOTE | 2018-10-07 12:52 | NUR ---
P- CONFUSION, POOR ST/LT MEMORY. PT STATES "I'M FEELING GOOD!" I- ORIENTATION, MOOD AND BEHAVIOR ASSESSED. ASSESSED PT FOR SI/HI, INTENT OR PLAN. ASSESSED PT FOR S/S HALLUCINATIONS, NO RESPONSE TO INTERNAL STIMULI NOTED. NO PARANOIA/DELUSIONS NOTED. ADL CARE COMPLETED WITH STAFF ASSIST X1. MEDICATIONS ADMINISTERED PER PHYSICIAN'S ORDERS. ENCOURAGED PT TO ATTEND AND PARTICIPATE IN ROBLES MILIEU GROUPS AND ACTIVITIES. R- PT IS ALERT AND ORIENTED TO SELF ONLY, CONFUSED IN ALL OTHER AREAS. ST/LT MEMORY GAPS NOTED. RESPS EASY AND EVEN ON ROOM AIR. MOOD IS STABLE, AFFECT IS APPROPRIATE. SPEECH IS SOFT, IRRELEVANT AT TIMES. PT IS ABLE TO MAKE NEEDS KNOWN. PT IS MEDICATION COMPLIANT WITHOUT DIFFICULTY. CALM AND COOPERATIVE WITH STAFF. EASILY REDIRECTABLE. PT ATTENDED MORNING GROUP, HOWEVER PARTICIPATION IS LIMITED D/T COGNITION. P- PLAN TO CONTINUE CURRENT TREATMENT, MONITOR MOOD AND BEHAVIOR, PROVIDE REDIRECTION, REORIENTATION AND 1:1 NEEDED. CONTINUE TO ENCOURAGE MEDICATION COMPLIANCE WELL GROUP ATTENDANCE AND PARTICIPATION.
--- NOTE | 2018-10-07 15:39 | NUR ---
Called pts son "Reynold" and left a VM requesting call back to confirm receipt of the mailed expert evaluation and to notify of discharge plan. Collaborated with tx team and medical planner regarding discharge plan.
--- NOTE | 2018-10-07 15:43 | NUR ---
NO PM GROUP THERAPY DUE TO 1:1 SESSIONS WITH PEERS
--- NOTE | 2018-10-07 18:29 | NUR ---
SHIFT CHART CHECK COMPLETED.
[2018-10-07 20:00] VITALS: BP 007/66
--- NOTE | 2018-10-07 21:55 | NUR ---
P--ISOLATIVE I--TRIED TO REORIENT AND REDIRECT. REVIEWED MEDICATION GIVEN. OFFERED EMOTIONAL SUPPORT. R-OK THANKS. P--MONITOR FOR BEHAVIOR AND MOOD CHANGES. CONTINUE EMOTIONA SUPPORT. REORIENT OFTEN.
--- NOTE | 2018-10-08 05:42 | NUR ---
INCONTINENT OF URINE. UP ONCE AND RETURNED TO BED POSITION OF COMFORT. NO KOUTBURSTS NOTED.
--- NOTE | 2018-10-08 05:58 | NUR ---
24 HR chart check completed.
[2018-10-08 07:35] VITALS: BP 117/67
[2018-10-08] MEDS ORDERED: VITAMIN D32000 UNI1 PO (09:00)
[2018-10-08] MEDS ORDERED: EXELON13.3 MG/21 T (09:00)
[2018-10-08] MEDS ORDERED: INVEGA SUSTENN156 MG IM (09:00)
[2018-10-08] MEDS ORDERED: MEMANTINE HCL10 MG PO (09:00)
--- NOTE | 2018-10-08 11:15 | NUR ---
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 PT CALM, MOOD IS STABLE. PT WANDERS THROUGHOUT THE UNIT AT TIME, REDIRECTION MINMALLY EFEFCTIVE. PT RESTLESS AT TIMES. NO HALLUCINATIONS OR DELUSIONS NOTED. PT DENIES ANY SUICIDAL/HOMICIDAL THOUGHTS. PT AMBULATORY, GAIT STEADY. PT CONTINENT OF BOWEL AND BLADDER, EPISODES OF INCONTINEENCE NOTED, CARE PROVIDED NEEDED. PLAN IS TO DISCHARGE PT HOME WITH DAUGHTER LATER TODAY.
--- NOTE | 2018-10-08 11:46 | NUR ---
AM GROUP/CREATIVE OUTLETS PT ATTENDED AND PARTICIPATED IN ALL GROUP ACTIVITIES. PT WAS RELAXED AND ON TASK. PT WILL BE DISCHARGED FROM THE UNIT TODAY.
--- NOTE | 2018-10-08 13:37 | NUR ---
PT DISCAHRGED TO HOME IN CARE OF HER DAUGHTER VIA PRIVATE CAR.
--- NOTE | 2018-10-11 07:21 | NUR ---
OCCUPATIONAL THERAPY CO-SIGN I approve of the Occupational Therapy notes written above. MEDHAT ARANA
--- NOTE | 2018-10-18 08:16 | NUR ---
PHYSICAL THERAPY CO-SIGN I approve of the Phyical Therapy notes written above. PROSPER HENRY PT
== END 2018-10-08 13:38 | disposition home or self-care (01) | DRG 883 ==
LOC: 3N 04:44
PROVIDERS: Internal Medicine; ADMIT Psychiatry & Neurology Psychiatry
DX: F63.81 Intermittent explosive disorder (principal); F23 Brief psychotic disorder; G30.9 Alzheimer's disease, unspecified; F02.80 Dementia in other diseases classified elsewhere, unspecified severity, without behavioral disturbance, psychotic disturbance, mood disturbance, and anxiety; F22 Delusional disorders; E03.9 Hypothyroidism, unspecified; E55.9 Vitamin D deficiency, unspecified; Z87.81 Personal history of (healed) traumatic fracture